=== PATIENT | female | born 1995 | race American Indian/Alaskan Native ===

== ENCOUNTER → 2018-03-25 16:54 | Emergency (ER) | payer MEDICAID | END | disposition left against medical advice (07) | LOC: ED 16:54 | DX: Z53.21 Procedure and treatment not carried out due to patient leaving prior to being seen by health care provider (principal) ==

== ENCOUNTER 2018-03-25 17:25 | Outpatient (CLI) | payer MEDICAID ==
[2018-03-25 17:58] VITALS: BP 110/74
[2018-03-25] MEDS ORDERED: LACTATED RINGERS 500 ML IV ONE (18:00)
[2018-03-25 18:14] LABS: Bilirubin,Urine NEG (Negative); Blood,Urine NEG (Negative); Color,Urine Amber (Yellow); Mucus,Urine 3+ /HPF
[2018-03-25 18:20] LABS: Amphetamine Screen,Urine PRESUMPTIVE NEGATIVE; Benzodiazepines Screen,Urine PRESUMPTIVE NEGATIVE; Cannabinoid Screen,Urine PRESUMPTIVE NEGATIVE; Cocaine Screen,Urine PRESUMPTIVE NEGATIVE; Methadone Screen,Urine PRESUMPTIVE NEGATIVE; Opiate Screen,Urine PRESUMPTIVE NEGATIVE
== END 2018-03-25 19:15 | disposition home or self-care (01) ==
LOC: TRG 17:25
PROVIDERS: ATTEND Obstetrics & Gynecology
DX: O47.03 False labor before 37 completed weeks of gestation, third trimester (principal); Z3A.36 36 weeks gestation of pregnancy
CPT/HCPCS: 59025; 80307; 81001; 96360; J7120

== ENCOUNTER 2018-04-13 21:02 | Inpatient (IN) | payer MEDICAID ==
--- NOTE | 2018-04-13 21:24 | Procedure Note ---
OB Delivery Note - Delivery Date of Delivery: 04/13/18 Surgeon: GWYN MCNEAL Estimated blood loss: <100cc - Vaginal Delivery presentation: vertex Delivery position: OA Intrapartum events: precipitous labor- <3hr Delivery induction: none Delivery monitor: none Route of delivery: Delivery placenta: spontaneous Delivery cord: 3 umbilical vessels Episiotomy: none Delivery laceration: vaginal side wall (nonbleeding not repaired) Anesthesia: none - Infant A at 1 minute: 8 at 5 minutes: 9 Gender: Male (time of delivery 9:01 AM, infant weight 7 lbs. 0 oz. or 3186 g)
--- NOTE | 2018-04-13 21:28 | History and Physical Report ---
History of Present Illness Date of examination: 04/13/18 Date of admission: 04/13/18 21:06 Chief complaint: Precipitous delivery History of present illness: 22-year-old now status post precipitous delivery at 38+5 wks over intact perineum, she is a drop-in patient with care at [facility] for women. Patient scheduled for repeat went into labor today, decided to present to [facility] where she subsequently delivered. Oral history of preeclampsia but blood pressures have been normal and not on antihypertensives. Past History Past Medical History: no pertinent history Past Surgical History: section [employer] History: chlamydia. denies: gonorrhea, hepatitis B, hepatitis C, herpes, HIV, syphilis Social history: single, full code. denies: smoking - Obstetrical History Expected Date of Delivery: 04/22/18 Actual Gestation: 38 Week(s) 5 Day(s) : 3 Para: 3 Medications and Allergies Allergies Allergy/AdvReac Type Severity Reaction Status Date / Time No Known Allergies Allergy Unverified 03/25/18 17:27 Home Medications Medication Instructions Recorded Confirmed Last Taken Type Aspirin [Lo-Dose Aspirin EC] 81 mg PO DAILY 03/25/18 03/25/18 03/25/18 History Review of Systems Constitutional: no fever, no chills Eyes: no diplopia, no blind spots Ears, nose, mouth and throat: no headache Cardiovascular: no chest pain, no palpitations, no lightheadedness, no shortness of breath, no dyspnea on exertion, no high blood pressure Respiratory: no cough, no cough with sputum, no shortness of breath, no dyspnea on exertion Gastrointestinal: no nausea, no vomiting Genitourinary: vaginal bleeding, no leakage of fluid, no pelvic pain - Physical Exam Abdomen: Positive: normal appearance, soft. Negative: distention, tenderness, guarding, rigidity Genitourinary (Female): Positive: normal external genitalia Uterus: Positive: other (Firm and well contracted). Negative: tender Adnexa: both: normal Extremities: Positive: normal Results All other labs normal. Assessment and Plan PPD#0 s/p PPT labour -Doing well P: -Routine care -Anticipate discharge in 24-48 hours - Patient Problems (1) Precipitate labor, with delivery Current Visit: Yes Status: Acute (2) 38 weeks gestation of Current Visit: Yes Status: Acute
[2018-04-13] MEDS ORDERED: PHENERGAN PR PRN (21:31)
[2018-04-13] MEDS ORDERED: TUCKS PAD TP PRN (21:31)
[2018-04-13] MEDS ORDERED: MILK OF MAGNESIA PO PRN (21:31)
[2018-04-13] MEDS ORDERED: LANSINOH TP PRN (21:31)
[2018-04-13] MEDS ORDERED: DULCOLAX PR PRN (21:31)
[2018-04-13] MEDS ORDERED: PHENERGAN PO PRN (21:31)
[2018-04-13] MEDS ORDERED: TYLENOL PO PRN (21:31)
[2018-04-13] MEDS ORDERED: BENADRYL PO PRN (21:31)
[2018-04-13] MEDS ORDERED: ZOFRAN IV PRN (21:31)
[2018-04-13] MEDS ORDERED: PITOCin/NS 20 UNIT/1000ML DRIP 20 UNITS/1,000 ML BAG IV SCH (22:00)
[2018-04-13] MEDS ORDERED: SODIUM CHLORIDE FLUSH SYRINGE 10 ML IV NR (22:00)
[2018-04-13] MEDS: MOTRIN PO SCH (23:47)
[2018-04-13] MEDS: METHERGINE PO SCH (23:48)
[2018-04-13] MEDS: FEOSOL PO SCH (23:48)
[2018-04-13] MEDS: COLACE PO SCH (23:49)
[2018-04-14 00:36] LABS: Hematocrit 30.4 % (30.3-42.9)
[2018-04-14] MEDS: MOTRIN PO SCH ×3 (05:59→22:28)
[2018-04-14] MEDS ORDERED: PRENATAL VITAMIN PO SCH (10:00)
[2018-04-14] MEDS: FEOSOL PO SCH ×2 (10:59→22:29)
[2018-04-14] MEDS: COLACE PO SCH ×2 (10:59→22:29)
[2018-04-14] MEDS: NORCO 5/325 PO PRN ×2 (14:55→20:45)
[2018-04-14] MEDS: METHERGINE PO SCH ×2 (14:55→22:28)
[2018-04-14] MEDS ORDERED: M-M-R II VACCINE SUB-Q ONE (21:31)
[2018-04-14] MEDS ORDERED: BOOSTRIX IM ONE (21:31)
--- NOTE | 2018-04-15 11:43 | Progress Note ---
Assessment and Plan A: day 2 S/P spontaneous vaginal delivery. Mild anemia. P: Discharge patient to home today. Advised pt. to continue taking her vitamin and iron supplements. Advised pt. to avoid IC, avoid heavy lifting, avoid strenuous exercise for 6 weeks. Advised pt. to follow up in clinic in 1 week for follow up. discharge instructions and warning signs discussed with pt. Pt. voiced understanding of all instructions. Subjective - Subjective Date of service: 04/15/18 Principal diagnosis: day 2 S/P Interval history: day 2 s/p of liveborn male infant. Doing well. Bottlefeeding and . Doing well. Pt. desires discharge today. Pt. declines contraception. Voiding without difficulty. Ambulating well. Tolerating a regular diet. Patient denies headache, visual disturbance, nausea or vomiting, cough, shortness of breath, chest pain, leg pain, abdominal pain, heavy bleeding, or symptoms of depression. Patient reports: appetite normal, voiding normally, pain well controlled, ambulating normally Hensel: doing well Objective - Vital Signs Latest vital signs: Vital Signs Temp Pulse Resp BP BP Pulse Ox 04/15/18 07:26 98.2 F 76 18 114/75 97 04/15/18 00:00 98.4 F 68 20 128/73 04/14/18 16:00 98.7 F 71 16 117/69 Intake and Output 04/14/18 04/15/18 04/15/18 23:59 07:59 15:59 Intake Total 240 Balance 240 Intake: Oral 240 Other: Total, Intake Amount 240 # Voids Void 1 - Exam Cardiovascular: Present: Regular rate, Normal S1, Normal S2 Lungs: Present: Clear to auscultation Abdomen: Present: soft. Absent: distention, tenderness, guarding, rigidity Uterus: Present: normal, firm, fundal height below umbilicus. Absent: bogginess , tenderness Extremities: Present: normal. Absent: tenderness, edema
--- NOTE | 2018-04-15 11:51 | Discharge Summary ---
Providers - Providers Date of Admission: 04/13/18 21:06 Date of discharge: 04/15/18 Attending physician: GWYN MCNEAL None Primary care physician: GWYN MCNEAL Hospitalization Reason for admission: active labor Delivery: Episiotomy: none Laceration: none Other procedures: none complications: none Discharge diagnosis: IUP at term delivered [place] baby: male Pertinent studies: Labs Hospital course: Normal course Condition at discharge: Good Disposition: DC-01 TO HOME OR SELFCARE - Discharge Diagnoses (1) Term delivered Status: Acute Plan - Discharge Medications Prescriptions: Ibuprofen [Motrin 600 MG tab] 600 mg PO Q8H PRN #30 tablet PRN Reason: Pain Multivitamin with Iron [Multivitamins with Iron] 1 each PO DAILY #30 tablet - Provider Discharge Summary Activity: routine, no sex for 6 weeks, no heavy lifting 4 weeks, no strenuous exercise Diet: routine Instructions: routine Additional instructions: Call your doctor immediately for: * Fever > 100.5 * Heavy vaginal bleeding ( >1 pad per hour) * Severe persistent headache * Shortness of breath * Reddened, hot, painful area to leg or breast - Follow up plan Follow up: GWYN MCNEAL MD [Primary Care Provider] - 7 Days
[2018-04-15 13:06] VITALS: BP 103/58
== END 2018-04-15 12:50 | disposition home or self-care (01) | DRG 775 ==
LOC: TRG 21:02 → LD 21:06 → TRG 21:06 → OB 23:17
PROVIDERS: ADMIT Obstetrics & Gynecology Gynecology; ATTEND Obstetrics & Gynecology Gynecology
PROC: 10E0XZZ Delivery of Products of Conception, External Approach (ICD-10-PCS; principal; 2018-04-13)
PROC: 3E0234Z Introduction of Serum, Toxoid and Vaccine into Muscle, Percutaneous Approach (ICD-10-PCS; 2018-04-14)
DX: O62.3 Precipitate labor (principal); Z37.0 Single live birth; O34.211 Maternal care for low transverse scar from previous cesarean delivery; Z79.82 Long term (current) use of aspirin; Z3A.38 38 weeks gestation of pregnancy; O99.03 Anemia complicating the puerperium; D64.9 Anemia, unspecified; Z23 Encounter for immunization; O71.4 Obstetric high vaginal laceration alone
CPT/HCPCS: 36415; 85014; 85018; 86592; 86850; 86900; 86901; J2590; Q0169

== ENCOUNTER 2018-04-28 12:31 | Emergency (ER) | payer MEDICAID ==
[2018-04-28 12:56] VITALS: BP 115/81
[2018-04-28] MEDS ORDERED: TORADOL IM ONE (15:22)
[2018-04-28] MEDS ORDERED: BICILLIN L-A IM ONE (15:22)
--- NOTE | 2018-04-28 15:22 | Emergency Department Report ---
ED ENT HPI - General Chief complaint: Sore Throat Stated complaint: EAR PAIN/SWOLLEN TONSILS Time Seen by Provider: 04/28/18 15:15 Source: patient Mode of arrival: Ambulatory Limitations: No Limitations - History of Present Illness Initial comments: Patient is a 22-year-old Female who is presenting with sore throat. Patient states it difficult to swallow for the past 2 days. Patient states pain is 7 out of 10 in severity. It is sharp pain. Patient states there is been no cough nausea vomiting diarrhea that started. He has had possible subjective fevers. - Related Data Home Medications Medication Instructions Recorded Confirmed Last Taken Aspirin [Lo-Dose Aspirin EC] 81 mg PO DAILY 03/25/18 04/13/18 3 Days Ago ~04/10/18 Previous Rx's Medication Instructions Recorded Last Taken Type Ibuprofen [Motrin 600 MG tab] 600 mg PO Q8H PRN #30 tablet 04/13/18 Unknown Rx Multivitamin with Iron 1 each PO DAILY #30 tablet 04/13/18 Unknown Rx [Multivitamins with Iron] HYDROcodone/ACETAMINOPHEN 15 ml PO Q6HR PRN #150 solution 04/28/18 Unknown Rx [Hydrocodon-Acetamin 7.5-325/15] predniSONE [Deltasone] 10 mg PO QDAY #7 tab 04/28/18 Unknown Rx Allergies Allergy/AdvReac Type Severity Reaction Status Date / Time No Known Allergies Allergy Unverified 03/25/18 17:27 ED Dental HPI - General Chief complaint: Sore Throat Stated complaint: EAR PAIN/SWOLLEN TONSILS Time Seen by Provider: 04/28/18 15:15 Source: patient Mode of arrival: Ambulatory Limitations: No Limitations - Related Data Home Medications Medication Instructions Recorded Confirmed Last Taken Aspirin [Lo-Dose Aspirin EC] 81 mg PO DAILY 03/25/18 04/13/18 3 Days Ago ~04/10/18 Previous Rx's Medication Instructions Recorded Last Taken Type Ibuprofen [Motrin 600 MG tab] 600 mg PO Q8H PRN #30 tablet 04/13/18 Unknown Rx Multivitamin with Iron 1 each PO DAILY #30 tablet 04/13/18 Unknown Rx [Multivitamins with Iron] HYDROcodone/ACETAMINOPHEN 15 ml PO Q6HR PRN #150 solution 04/28/18 Unknown Rx [Hydrocodon-Acetamin 7.5-325/15] predniSONE [Deltasone] 10 mg PO QDAY #7 tab 04/28/18 Unknown Rx Allergies Allergy/AdvReac Type Severity Reaction Status Date / Time No Known Allergies Allergy Unverified 03/25/18 17:27 ED Review of Systems ROS: Stated complaint: EAR PAIN/SWOLLEN TONSILS Other details as noted in HPI Comment: All other systems reviewed and negative ED Past Medical Hx - Past Medical History Previous Medical History?: No Hx Hypertension: No Hx Diabetes: No Hx Deep Vein Thrombosis: No Hx Renal Disease: No Hx Sickle Cell Disease: No Hx Seizures: No Hx Asthma: No Hx HIV: No - Surgical History Past Surgical History?: Yes Additional Surgical History: - Social History Smoking Status: Never Smoker Substance Use Type: None - Medications Home Medications: Home Medications Medication Instructions Recorded Confirmed Last Taken Type Aspirin [Lo-Dose Aspirin EC] 81 mg PO DAILY 03/25/18 04/13/18 3 Days Ago History ~04/10/18 Ibuprofen [Motrin 600 MG tab] 600 mg PO Q8H PRN #30 tablet 04/13/18 Unknown Rx Multivitamin with Iron 1 each PO DAILY #30 tablet 04/13/18 Unknown Rx [Multivitamins with Iron] HYDROcodone/ACETAMINOPHEN 15 ml PO Q6HR PRN #150 solution 04/28/18 Unknown Rx [Hydrocodon-Acetamin 7.5-325/15] predniSONE [Deltasone] 10 mg PO QDAY #7 tab 04/28/18 Unknown Rx ED Physical Exam - General Limitations: No Limitations General appearance: alert, in no apparent distress - Head Head exam: Present: atraumatic, normocephalic - Eye Eye exam: Present: normal appearance - ENT ENT exam: Present: mucous membranes moist, other (patient has a pharyngeal erythema and some mild swelling and some palatal petechiae) - Neck Neck exam: Present: normal inspection - Respiratory Respiratory exam: Present: normal lung sounds bilaterally. Absent: respiratory distress - Cardiovascular Cardiovascular Exam: Present: regular rate, normal rhythm. Absent: systolic murmur, diastolic murmur, rubs, gallop - GI/Abdominal GI/Abdominal exam: Present: soft, normal bowel sounds - Extremities Exam Extremities exam: Present: normal inspection - Back Exam Back exam: Present: normal inspection - Neurological Exam Neurological exam: Present: alert, oriented X3 - Psychiatric Psychiatric exam: Present: normal affect, normal mood - Skin Skin exam: Present: warm, dry, intact, normal color. Absent: rash ED Course Vital Signs 04/28/18 12:50 Temperature 98.6 F Pulse Rate 113 H Respiratory 18 Rate Blood Pressure 115/81 O2 Sat by Pulse 98 Oximetry ED Medical Decision Making - Medical Decision Making Patient is central criteria for treatment with antibiotics. Critical care attestation.: If time is entered above; I have spent that time in minutes in the direct care of this critically ill patient, excluding procedure time. ED Disposition Clinical Impression: Acute bacterial pharyngitis Disposition: TO HOME OR SELFCARE Is pt being admited?: No Does the pt Need Aspirin: No Condition: Stable Instructions: Pharyngitis (ED) Prescriptions: HYDROcodone/ACETAMINOPHEN [Hydrocodon-Acetamin 7.5-325/15] 15 ml PO Q6HR PRN # 150 solution PRN Reason: Pain predniSONE [Deltasone] 10 mg PO QDAY #7 tab Referrals: LISA JADE [Other] - 3-5 Days
== END 2018-04-28 15:35 | disposition home or self-care (01) ==
LOC: ED 12:31
DX: J02.8 Acute pharyngitis due to other specified organisms (principal); B96.89 Other specified bacterial agents as the cause of diseases classified elsewhere; Z79.82 Long term (current) use of aspirin
CPT/HCPCS: 96372; 99282; J0561; J1885

== ENCOUNTER 2020-04-16 10:09 | Emergency (ER) | payer MEDICAID ==
[2020-04-16] MEDS ORDERED: METOCLOPRAMIDE 10 MG/2 ML INJ IV ONE (12:23)
[2020-04-16] MEDS ORDERED: SODIUM CHLORIDE 0.9% 1000 ML 1,000 ML IV ONE (12:23)
[2020-04-16] MEDS ORDERED: diphenhydrAMINE 50 MG/ML VIAL IV ONE (12:23)
--- NOTE | 2020-04-16 12:29 | Emergency Department Report ---
ED General Adult HPI - General Chief complaint: Headache Stated complaint: HEADACHE/BODY ACHE Time Seen by Provider: 04/16/20 12:23 Source: patient Mode of arrival: Ambulatory Limitations: No Limitations - History of Present Illness Initial comments: 24-year-old female with no significant past medical history presents to the ER today complaining of frontal headache which she has been having constantly for about 1 week. She describes it as a throbbing headache. She has been taking [id number] Tylenol without relief. Patient states that she goes to sleep with a headache and wakes up with a headache. She reports associated nausea, blurry vision, generalized body aches, generalized fatigue, intermittent abdominal cramping and she states 2 days ago she had diarrhea. Patient also reports that she has not had a menstrual cycle since she had a IUD placed about 8 months ago. She has not taken a home test. She denies any apparent ill contacts. She denies any recent travel out of the country. She reports no focal weakness, changes to her speech, numbness, tingling, chest pain, shortness of breath wheezing runny nose, stuffy nose or sore throat. MD Complaint: Headache, Nausea, Abdominal Cramps, Bodyaches, Diarrhea -: week(s) (1) Severity scale (0 -10): 0 - Related Data Home Medications Medication Instructions Recorded Confirmed Last Taken Aspirin [Lo-Dose Aspirin EC] 81 mg PO DAILY 03/25/18 04/13/18 3 Days Ago ~04/10/18 Previous Rx's Medication Instructions Recorded Last Taken Type Ibuprofen [Motrin 600 MG tab] 600 mg PO Q8H PRN #30 tablet 04/13/18 Unknown Rx Multivitamin with Iron 1 each PO DAILY #30 tablet 04/13/18 Unknown Rx [Multivitamins with Iron] Butalb/Acetamin/Caff 50-325-40 1 tab PO Q6HR PRN #12 tab 04/16/20 Unknown Rx [Fioricet 50-325-40] Ondansetron [Zofran Odt] 4 mg PO Q8HR PRN #10 tab.rapdis 04/16/20 Unknown Rx Allergies Allergy/AdvReac Type Severity Reaction Status Date / Time No Known Allergies Allergy Unverified 03/25/18 17:27 ED Review of Systems ROS: Stated complaint: HEADACHE/BODY ACHE Other details as noted in HPI Comment: All other systems reviewed and negative Constitutional: malaise. denies: chills, diaphoresis, fever, weakness Eyes: vision change ( blurry vision). denies: eye pain, eye discharge ENT: denies: ear pain, throat pain Respiratory: denies: cough, shortness of breath, wheezing Cardiovascular: denies: chest pain, palpitations Gastrointestinal: abdominal pain, nausea, diarrhea. denies: vomiting, constipation, hematemesis, melena, hematochezia Genitourinary: denies: urgency, dysuria, discharge Musculoskeletal: denies: back pain, joint swelling, arthralgia Skin: denies: rash, lesions Neurological: headache. denies: weakness, numbness, paresthesias, confusion, abnormal gait, vertigo ED Past Medical Hx - Past Medical History Previous Medical History?: No Hx Hypertension: No Hx Diabetes: No Hx Deep Vein Thrombosis: No Hx Renal Disease: No Hx Sickle Cell Disease: No Hx Seizures: No Hx Asthma: No Hx HIV: No - Surgical History Past Surgical History?: Yes Additional Surgical History: - Social History Smoking Status: Never Smoker Substance Use Type: None - Medications Home Medications: Home Medications Medication Instructions Recorded Confirmed Last Taken Type Aspirin [Lo-Dose Aspirin EC] 81 mg PO DAILY 03/25/18 04/13/18 3 Days Ago History ~04/10/18 Ibuprofen [Motrin 600 MG tab] 600 mg PO Q8H PRN #30 tablet 04/13/18 Unknown Rx Multivitamin with Iron 1 each PO DAILY #30 tablet 04/13/18 Unknown Rx [Multivitamins with Iron] Butalb/Acetamin/Caff 50-325-40 1 tab PO Q6HR PRN #12 tab 04/16/20 Unknown Rx [Fioricet 50-325-40] Ondansetron [Zofran Odt] 4 mg PO Q8HR PRN #10 tab.rapdis 04/16/20 Unknown Rx ED Physical Exam - General Limitations: No Limitations General appearance: alert, in no apparent distress - Head Head exam: Present: atraumatic, normocephalic, normal inspection - Eye Eye exam: Present: normal appearance, PERRL, EOMI Pupils: Present: normal accommodation - ENT ENT exam: Present: normal exam, normal orophraynx, mucous membranes moist - Neck Neck exam: Present: normal inspection - Respiratory Respiratory exam: Present: normal lung sounds bilaterally. Absent: respiratory distress - Cardiovascular Cardiovascular Exam: Present: regular rate, normal rhythm. Absent: systolic murmur, diastolic murmur, rubs, gallop - GI/Abdominal GI/Abdominal exam: Present: soft. Absent: distended, tenderness - Neurological Exam Neurological exam: Present: alert, oriented X3, CN II-XII intact, normal gait. Absent: motor sensory deficit - Psychiatric Psychiatric exam: Present: normal affect - Skin Skin exam: Present: intact ED Course Vital Signs 04/16/20 04/16/20 04/16/20 10:13 11:37 13:38 Temperature 98.6 F 98.1 F Pulse Rate 86 72 Respiratory 20 20 14 Rate Blood Pressure 107/63 102/64 O2 Sat by Pulse 96 96 97 Oximetry ED Medical Decision Making - Lab Data Result diagrams: 04/16/20 12:32 04/16/20 12:32 - Radiology Data Radiology results: report reviewed - Medical Decision Making 1403 -- Patient resting comfortably, appears to be feeling better, no acute distress, awake alert and oriented x 3, neurologically intact and no meningeal signs. She is not toxic or ill appearing. Abd soft and non tender. No vomiting or diarrhea during stay. labs and head CT reviewed with patient. Nothing acute on w/u today. VS stable. Discussed suspected dx and tx plan with pt. Recommend f/u with PCP and neurologist especially if PERKINS continues. Pt expresses understanding of instructions and agrees with plan. Pt stable at time of d/c. Critical care attestation.: If time is entered above; I have spent that time in minutes in the direct care of this critically ill patient, excluding procedure time. ED Disposition Clinical Impression: Headache, Viral syndrome Disposition: DC-01 TO HOME OR SELFCARE Is pt being admited?: No Does the pt Need Aspirin: No Condition: Stable Instructions: Viral Syndrome (ED), Acute Headache (ED) Additional Instructions: I RECOMMEND YOU TAKE MEDICATIONS PRESCRIBED. DRINK LOTS OF FLUIDS. YOU CAN F/U WITH LOCAL HEALTH DEPARTMENT OR PCP OFFICE FOR COVID 19 TESTING. I RECOMMEND CLOSE F/U WITH PCP AND NEUROLOGIST ESPECIALLY IF HEADACHE CONTINUES. RETURN TO ED IF ANYTHING CHANGES WORSENS OR CHANGES. Prescriptions: Butalb/Acetamin/Caff 50-325-40 [Fioricet 50-325-40] 1 tab PO Q6HR PRN #12 tab PRN Reason: Headache Ondansetron [Zofran Odt] 4 mg PO Q8HR PRN #10 tab.rapdis PRN Reason: Nausea Referrals: JOSE MANUEL GASTELUM MD [Staff Physician] - 3-5 Days Forms: Work/School Release Form(ED) Time of Disposition: 13:55
[2020-04-16 12:46] LABS: Basophils % (Auto) 0.5 % (0.0-1.8); Eosinophils # (Auto) 0.3 K/mm3 (0.0-0.4); Eosinophils % (Auto) 3.3 % (0.0-4.3); Hematocrit 39.7 % (30.3-42.9); Lymphocytes # (Auto) 2.3 K/mm3 (1.2-5.4); Lymphocytes % (Auto) 27.6 % (13.4-35.0); Mean Corpuscular HGB Conc 33 % (30-34); Mean Corpuscular Volume 74 fl (79-97); Monocytes # (Auto) 0.5 K/mm3 (0.0-0.8); Platelet Count 315 K/mm3 (140-440); Red Blood Count 5.35 M/mm3 (3.65-5.03); Red Cell Distribution Width 15.3 % (13.2-15.2)
[2020-04-16 12:58] LABS: Bacteria,Urine 1+ /HPF (Negative); Bilirubin,Urine NEG (Negative); Blood,Urine NEG (Negative); Color,Urine Yellow (Yellow); Mucus,Urine FEW /HPF; Protein,Urine <15 mg/dL mg/dL (Negative)
[2020-04-16 13:00] LABS: HCG Qualitative,Urine Negative (Negative)
[2020-04-16 13:05] LABS: Alanine Aminotransferase 16 units/L (7-56); Albumin 4.6 g/dL (3.9-5); BUN/Creatinine Ratio 27; Blood Urea Nitrogen 16 mg/dL (7-17); Calcium 9.5 mg/dL (8.4-10.2); Hemolysis Index 5
[2020-04-16 13:40] VITALS: BP 102/64
--- NOTE | 2020-04-16 13:47 | Cat Scan Report ---
CT BRAIN: 04/16/2020 INDICATION / CLINICAL INFORMATION: severe PERKINS. COMPARISON: None available. FINDINGS: BRAIN/INTRACRANIAL STRUCTURES: Unenhanced CT images of the brain demonstrate no evidence of acute int racranial abnormality. Ventricles and sulci are normal in size and shape. There is no evidence of hemorrhage or mass. There are no abnormal extra-axial fluid collections. EXTRACRANIAL STRUCTURES: Unremarkable. IMPRESSION: No acute abnormality. Negative unenhanced CT of the brain. All CT scans at this location are performed using dose reduction to ALARA by means of automated expos ure control. Signer Name: Jalen Acevedo MD Signed: 04/16/2020 1:42 PM Workstation Name: [id number]
== END 2020-04-16 14:18 | disposition home or self-care (01) ==
LOC: ED 10:09
DX: R51 Headache (principal); B34.9 Viral infection, unspecified; Z79.82 Long term (current) use of aspirin; Z79.1 Long term (current) use of non-steroidal anti-inflammatories (NSAID); Z79.899 Other long term (current) drug therapy
CPT/HCPCS: 36415; 70450; 80053; 81001; 81025; 83690; 83735; 85025; 96361; 96374; 96375; 99284; J1200; J2765; J7030